=== PATIENT | female | born 1965 | race Caucasian/White ===

== ENCOUNTER 2018-09-15 14:18 | Emergency (ER) | payer BC ==
[2018-09-15] MEDS ORDERED: Sodium Chloride 0.9% 10 ML Syringe FLUSH PRN (14:52)
[2018-09-15] MEDS ORDERED: Lactated Ringers 1,000 ML IV SCH (15:00)
--- NOTE | 2018-09-15 15:46 | EDM.PDOC ---
ED HPI GENERAL MEDICAL PROBLEM - General Chief Complaint: OPHTHALMIC MEDICAL TECHNICIAN Problem Stated Complaint: FREQUENT VAGINAL BLEEDING Time Seen by Provider: 09/15/18 14:28 Source of Information: Reports: Patient History Limitations: Reports: No Limitations - History of Present Illness INITIAL COMMENTS - FREE TEXT/NARRATIVE: The patient presents with vaginal bleeding. The patient says this started July 25. She has been bleeding daily and she did see her doctor. She was put on provera and that did not help so she was put on some control and that made her stop bleeding for about a week and then it started again and she has been bleeding for over a week. She sees ARTI Cadena in [place]. She sent her up for further evaluation and treatment. She said this morning she soaked 6 pads in 4 hours. She is . She had no complications with any deliveries. She was still getting her periods until the end of July when she started bleeding more. She says every 25 days she would get a period and they would last about 7 days with heavy bleeding at times. She does have some cramping with the bleeding. She says motrin is helping the pain. She has no fever, chills, cough, congestion, runny nose, chest pain, shortness of breath, nausea, vomiting and she is not lightheaded. 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 Abdomen Pain Score (Numeric/FACES): 8 - Related Data Allergies Allergy/AdvReac Type Severity Reaction Status Date / Time No Known Allergies Allergy Verified 09/15/18 14:30 Home Meds: Home Meds Cholecalciferol (Vitamin D3) [Vitamin D3] 1 tab PO DAILY 09/15/18 [History] Ferrous Sulfate [Iron] 325 mg PO MOWEFR 09/15/18 [History] Lisinopril/Hydrochlorothiazide [Zestoretic 10-12.5 mg Tablet] 1 tab PO DAILY [History] Loratadine [Claritin] 10 mg PO DAILY 09/15/18 [History] Multivitamin [Multivitamins] 1 cap PO DAILY 09/15/18 [History] Norgestrel-Ethinyl Estradiol [Cryselle-28 Tablet] 1 each PO BID #1 pack [Rx] medroxyPROGESTERone [Provera] 10 mg PO DAILY 09/15/18 [History] Past Medical History HEENT History: Reports: Impaired Vision, Other (See Below) Other HEENT History: wisdom tooth pulled Cardiovascular History: Reports: Hypertension 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 Denies: Nausea, Vomiting : Reports: Other (Pelvic cramping and vaginal bleeding) ED EXAM, RENAL/ - Physical Exam Exam: See Below Exam Limited By: No Limitations General Appearance: Alert, No Apparent Distress Ears: Normal External Exam Nose: Normal Inspection Head: Atraumatic, Normocephalic Neck: Normal Inspection Respiratory/Chest: No Respiratory Distress, Lungs Clear, Normal Breath Sounds Cardiovascular: Regular Rate, Rhythm, No Edema, No Murmur GI/Abdominal: Soft, No Organomegaly, No Mass, Tender (Mild lower abdominal tenderness) Extremities: Normal Inspection Course - Vital Signs Last Recorded V/S: Last Vital Signs Temp 98.1 F 09/15/18 14:24 Pulse 103 H 09/15/18 14:24 Resp 19 09/15/18 14:24 BP 157/68 H 09/15/18 14:24 Pulse Ox 98 09/15/18 14:24 - Orders/Labs/Meds Orders: Active Orders 24 hr Category Date Time Status Pelvic Exam, Set Up [RC] ASDIRECTED Care 09/15/18 14:54 Active Peripheral IV Care [RC] . DIRECTED Care 09/15/18 14:53 Active Lactated Ringers [Ringers, Lactated] 1,000 ml Med 09/15/18 15:00 Active IV ASDIRECTED Sodium Chloride 0.9% [Saline Flush] Med 09/15/18 14:52 Active 10 ml FLUSH ASDIRECTED PRN Peripheral IV Insertion Adult [OM.PC] Stat Oth 09/15/18 14:52 Ordered Medication Orders Lactated Ringer's (Ringers, Lactated) 1,000 mls @ 125 mls/hr IV ASDIRECTED MILLIE Last Admin: 09/15/18 15:45 Dose: 125 mls/hr Sodium Chloride (Saline Flush) 10 ml FLUSH ASDIRECTED PRN PRN Reason: Keep Vein Open Last Admin: 09/15/18 15:46 Dose: 10 ml Labs: Laboratory Tests 09/15/18 09/15/18 09/15/18 Range/Units 15:50 15:50 15:50 WBC 12.88 H (3.98-10.04) K/mm3 RBC 4.01 (3.98-5.22) M/mm3 Hgb 10.4 L (11.2-15.7) gm/L Hct 32.8 L (34.1-44.9) % MCV 81.8 (79.4-94.8) fl MCH 25.9 (25.6-32.2) pg MCHC 31.7 L (32.2-35.5) g/dl RDW Std Deviation 42.7 (36.4-46.3) fL Plt Count 239 (182-369) K/mm3 MPV 10.7 (9.4-12.3) fl Neut % (Auto) 77.2 H (34.0-71.1) % Lymph % (Auto) 16.8 L (19.3-51.7) % [place] % (Auto) 5.5 (4.7-12.5) % Eos % (Auto) 0.2 L (0.7-5.8) Baso % (Auto) 0.1 (0.1-1.2) % Neut # (Auto) 9.95 H (1.56-6.13) K/mm3 Lymph # (Auto) 2.16 (1.18-3.74) K/mm3 [place] # (Auto) 0.71 H (0.24-0.36) K/mm3 Eos # (Auto) 0.03 L (0.04-0.36) K/mm3 Baso # (Auto) 0.01 (0.01-0.08) K/mm3 Sodium 143 (136-145) mEq/L Potassium 3.4 L (3.5-5.1) mEq/L Chloride 105 (98-107) mEq/L Carbon Dioxide 25 (21-32) mEq/L Anion Gap 16.4 H (5-15) BUN 11 (7-18) mg/dL Creatinine 0.8 (0.55-1.02) mg/dL Est Cr Clr Drug Dosing TNP Estimated GFR (MDRD) > 60 (>60) mL/min BUN/Creatinine Ratio 13.8 L (14-18) Glucose 90 (74-106) mg/dL Calcium 9.4 (8.5-10.1) mg/dL Total Bilirubin 0.2 (0.2-1.0) mg/dL AST 13 L (15-37) U/L ALT 20 (14-59) U/L Alkaline Phosphatase 63 (46-116) U/L Total Protein 7.3 (6.4-8.2) g/dl Albumin 3.1 L (3.4-5.0) g/dl Globulin 4.2 gm/dL Albumin/Globulin Ratio 0.7 L (1-2) HCG, Qual Negative (NEGATIVE) Meds: Medications Generic Name Dose Route Start Last Admin Trade Name Freq PRN Reason Stop Dose Admin Lactated Ringer's 1,000 mls @ 125 mls/hr 09/15/18 15:00 09/15/18 15:45 Ringers, Lactated IV 125 mls/hr ASDIRECTED MILLIE Administration Sodium Chloride 10 ml 09/15/18 14:52 09/15/18 15:46 Saline Flush FLUSH 10 ml ASDIRECTED PRN Administration Keep Vein Open - Re-Assessments/Exams Free Text/Narrative Re-Assessment/Exam: 09/15/18 15:48 I ordered an IV LR at 125mL/hr, labs, and pelvic exam. 09/15/18 16:56 Her WBC was elevated at 12.88. Her Hgb was low at 10.4. On August 17 her Hgb was 11.5. 09/15/18 17:10 The US shows endometrial thickness at the upper limits of normal at 1.8cm. Incidental nabothian cysts. Questionable adenomyosis. Small 3.0cm simple cyst within the left ovary which is likely incidental. I called Dr Pascual and he would like to see the patient tomorrow morning at 8:30 and he wanted her on cryselle control BID. Departure - Departure Time of Disposition: 17:15 Disposition: Home, Self-Care 01 Condition: Good Clinical Impression: Menorrhagia Qualifiers: Menorrahagia type: with irregular cycle Qualified Code(s): N92.1 - Excessive and frequent menstruation with irregular cycle - Discharge Information *PRESCRIPTION DRUG MONITORING PROGRAM REVIEWED*: Not Applicable *COPY OF PRESCRIPTION DRUG MONITORING REPORT IN PATIENT GUZMAN: Not Applicable Prescriptions: Norgestrel-Ethinyl Estradiol [Cryselle-28 Tablet] 1 each PO BID #1 pack Referrals: Yazmin Leyva PA [Primary Care Provider] - Bhavik Pascual MD [Physician] - 1 Day Forms: ED Department Discharge Additional Instructions: Take the cryselle control pill in the morning and night. Follow up with Dr Pascual tomorrow morning at 8:30am. Please come a little early to register. Please return if you are worse. - My Orders Last 24 Hours: My Active Orders 09/15/18 14:52 Sodium Chloride 0.9% [Saline Flush] 10 ml FLUSH ASDIRECTED PRN Peripheral IV Insertion Adult [OM.PC] Stat 09/15/18 14:53 Peripheral IV Care [RC] . DIRECTED 09/15/18 14:54 Pelvic Exam, Set Up [RC] ASDIRECTED 09/15/18 15:00 Lactated Ringers [Ringers, Lactated] 1,000 ml IV ASDIRECTED - Assessment/Plan Last 24 Hours: My Active Orders 09/15/18 14:52 Sodium Chloride 0.9% [Saline Flush] 10 ml FLUSH ASDIRECTED PRN Peripheral IV Insertion Adult [OM.PC] Stat 09/15/18 14:53 Peripheral IV Care [RC] . DIRECTED 09/15/18 14:54 Pelvic Exam, Set Up [RC] ASDIRECTED 09/15/18 15:00 Lactated Ringers [Ringers, Lactated] 1,000 ml IV ASDIRECTED
--- NOTE | 2018-09-15 16:34 | US ---
Pelvic ultrasound: Multiple real-time images were obtained transvaginally. Uterus is anteverted. Uterus is generous in size without focal myometrial abnormality. Endometrial thickness is at the upper limits of normal at 1.8 cm. Small 3.0 cm simple cyst noted within the left ovary. Right ovary is unremarkable. Incidental nabothian cysts are seen. Uterus is slightly difficult to penetrate raising the possibility of adenomyosis. No free fluid is seen. Measurements: Uterus: Length 14.4 cm, AP height 8.5 cm, transverse with 12.3 cm Right ovary: 4.3 x 2.3 x 1.7 cm Left ovary: 6.2 x 2.8 x 4.8 cm Impression: 1. Endometrial thickness at the upper limits of normal at 1.8 cm. 2. Incidental nabothian cysts. 3. Questionable adenomyosis. 4. Small 3.0 cm simple cyst within the left ovary which is likely incidental. Diagnostic code #2
== END 2018-09-15 17:52 | disposition home or self-care (01) ==
LOC: JD.ED 14:18
DX: N92.1 Excessive and frequent menstruation with irregular cycle (principal); I10 Essential (primary) hypertension; Z79.899 Other long term (current) drug therapy
CPT/HCPCS: 36415; 76830; 80053; 84703; 85025; 96360; 96361; 99284; J7120; 99283

== ENCOUNTER 2018-09-23 07:04 | Inpatient (IN) | payer BC ==
[~2018-09-23 07:04] MED LIST: Dexamethasone 4 MG/ML 5 ML MDV ONE; Ketorolac 30 MG/ML SDV ONE; Lactated Ringers 1,000 ML IV SCH; Lidocaine 1%/Sod Bicarbonate in NS 8.4% 1 ML Syringe IDERM PRN; Midazolam 1 MG/ML 2 ML SDV ONE; Propofol 200 MG/20 ML SDV ONE; Rocuronium 50 MG/5 ML Vial ONE; Sodium Chloride 0.9% 10 ML Syringe FLUSH PRN; ceFAZolin 1 GM Vial ONE; fentaNYL 100 MCG/2 ML SDV ONE
[2018-09-23] MEDS ORDERED: Scopolamine 1.5 MG Transdermal Patch TRDERM ONE (08:15)
--- NOTE | 2018-09-23 08:29 | PCM.PREANE ---
Preanesthetic Assessment - Anesthesia/Transfusion/Family Hx Anesthesia History: No Prior Anesthesia Family History of Anesthesia Reaction: No Transfusion History: No Prior Transfusion(s) Intubation History: Unknown - Review of Systems General: No Symptoms Pulmonary: No Symptoms (ETOH: rare) Cardiovascular: No Symptoms (History of HTN), Palpitations Gastrointestinal: No Symptoms Neurological: No Symptoms (History of getting car sick/Vertigo noted one time/ scopalamine patch placed in preop. area.) Other: Reports: Sinus Problem (Seasonal allergies), Anxiety - Physical Assessment NPO Status Date: 09/22/18 NPO Status Time: 20:00 Pulse: 79 O2 Sat by Pulse Oximetry: 98 Respiratory Rate: 16 Blood Pressure: 141/68 Temperature: 36.7 C Vital Signs: Last Vital Signs Temp 36.7 C 09/23/18 07:25 Pulse 79 09/23/18 07:25 Resp 16 09/23/18 07:25 BP 141/68 H 09/23/18 07:25 Pulse Ox 98 09/23/18 07:25 Height: 1.75 m Weight: 110.677 kg ASA Class: 2 Mental Status: Alert & Oriented x3 Airway Class: Mallampati = 3 Dentition: Reports: Normal Dentition, [place](s), [place] Thyro-Mental Finger Breadths: 3 Mouth Opening Finger Breadths: 3 ROM/Head Extension: Full Lungs: Clear to Auscultation, Normal Respiratory Effort Cardiovascular: Regular Rate, Regular Rhythm, No Murmurs - Lab Values: Laboratory Last Values Urine HCG, Qual Negative (NEGATIVE) 09/23/18 07:28 - Imaging/EKG Impressions: EKG: SR rate=75, minimal ST depression/lateral leads. (5K run in October 2017, noted with patient reporting no symptoms or complaints at that time and no changes noted with exercise tolerance since that time.) - Allergies Allergies/Adverse Reactions: Allergies Allergy/AdvReac Type Severity Reaction Status Date / Time No Known Allergies Allergy Verified 09/23/18 08:16 - Anesthesia Plan Pre-Op Medication Ordered: None - Acknowledgements Anesthesia Type Planned: General Anesthesia Pt an Appropriate Candidate for the Planned Anesthesia: Yes Alternatives and Risks of Anesthesia Discussed w Pt/Guardian: Yes Pt/Guardian Understands and Agrees with Anesthesia Plan: Yes PreAnesthesia Questionnaire HEENT History: Reports: Impaired Vision, Other (See Below) Other HEENT History: wisdom tooth pulled Cardiovascular History: Reports: Hypertension Respiratory History: Reports: None Gastrointestinal History: Reports: None Genitourinary History: Reports: None 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: Musculoskeletal History: Reports: None Neurological History: Reports: None Psychiatric History: Reports: None Endocrine/Metabolic History: Reports: None Hematologic History: Reports: None Immunologic History: Reports: None Oncologic (Cancer) History: Reports: None Dermatologic History: Reports: None - Infectious Disease History Infectious Disease History: Reports: Chicken Pox - Past Surgical History Head Surgeries/Procedures: Reports: None Cardiovascular Surgical History: Reports: None Respiratory Surgical History: Reports: None GI Surgical History: Reports: None Female Surgical History: Reports: None Male Surgical History: Reports: None Endocrine Surgical History: Reports: None Neurological Surgical History: Reports: None Musculoskeletal Surgical History: Reports: None Oncologic Surgical History: Reports: None Dermatological Surgical History: Reports: None - SUBSTANCE USE Smoking Status *Q: Never Smoker Recreational Drug Use History: No - HOME MEDS Home Medications: Home Meds Cholecalciferol (Vitamin D3) [Vitamin D3] 1 tab PO DAILY 09/15/18 [History] Ferrous Sulfate [Iron] 325 mg PO MOWEFR 09/15/18 [History] Lisinopril/Hydrochlorothiazide [Zestoretic 10-12.5 mg Tablet] 1 tab PO DAILY [History] Loratadine [Claritin] 10 mg PO DAILY 09/15/18 [History] Multivitamin [Multivitamins] 1 cap PO DAILY 09/15/18 [History] Norgestrel-Ethinyl Estradiol [Cryselle-28 Tablet] 1 each PO BID #1 pack [Rx] - CURRENT (IN HOUSE) MEDS Current Meds: Current Medications Lactated Ringer's (Ringers, Lactated) 1,000 mls @ 125 mls/hr IV ASDIRECTED MILLIE Stop: 09/23/18 23:00 Last Admin: 09/23/18 07:55 Dose: 125 mls/hr Lidocaine/Sodium Bicarbonate (Buffered Lidocaine 1% In Ns 8.4%) 0.25 ml IDERM ONETIME PRN PRN Reason: Prior to IV Start Stop: 09/23/18 18:00 Last Admin: 09/23/18 07:55 Dose: 0.25 ml Scopolamine (Transderm-Scop) 1.5 mg TRDERM ONETIME ONE Stop: 09/23/18 08:16 Sodium Chloride (Saline Flush) 10 ml FLUSH ASDIRECTED PRN PRN Reason: Keep Vein Open Stop: 09/23/18 18:00 Discontinued Medications Cefazolin Sodium (Ancef) Confirm Administered Dose 1 gm .ROUTE .STK-MED ONE Stop: 09/23/18 06:54 Cefazolin Sodium (Ancef) Confirm Administered Dose 1 gm .ROUTE .STK-MED ONE Stop: 09/23/18 06:55 Dexamethasone (Dexamethasone) Confirm Administered Dose 20 mg .ROUTE .STK-MED ONE Stop: 09/23/18 06:49 Fentanyl (Sublimaze) Confirm Administered Dose 100 mcg .ROUTE .STK-MED ONE Stop: 09/23/18 06:47 Ketorolac Tromethamine (Toradol) Confirm Administered Dose 30 mg .ROUTE .STK- MED ONE Stop: 09/23/18 06:48 Midazolam HCl (Versed 1 Mg/Ml) Confirm Administered Dose 2 mg .ROUTE .STK-MED ONE Stop: 09/23/18 06:46 Propofol (Diprivan 20 Ml) Confirm Administered Dose 200 mg .ROUTE .STK-MED ONE Stop: 09/23/18 06:46 Rocuronium Ault (Zemuron) Confirm Administered Dose 50 mg .ROUTE .STK-MED ONE Stop: 09/23/18 06:47
[2018-09-23] MEDS ORDERED: Bupivacaine 0.5% 30 ML SDV ONE (08:43)
[2018-09-23] MEDS ORDERED: HYDROmorphone 0.5 MG/0.5 ML Syringe ONE ×4 (09:30→10:58)
[2018-09-23] MEDS ORDERED: fentaNYL 100 MCG/2 ML SDV ONE (09:31)
[2018-09-23] MEDS ORDERED: Neostigmine Methylsulfate 1 MG/ML 5 ML Syringe ONE (09:44)
[2018-09-23] MEDS ORDERED: Ondansetron 4 MG/2 ML SDV ONE (09:52)
[2018-09-23] MEDS: Sodium Chloride 0.9% 50 ML SDV ONE ×2 (10:12→10:25)
[2018-09-23] MEDS: Lidocaine 1% with EPINEPHrine 1:100,000 20 ML MDV ONE ×2 (10:12→10:25)
[2018-09-23] MEDS ORDERED: Propofol 200 MG/20 ML SDV ONE (10:47)
[2018-09-23] MEDS ORDERED: Phenylephrine 1% 10 MG/ML SDV ONE (10:52)
[2018-09-23] MEDS ORDERED: Hetastarch in NS 500 ML ONE (11:12)
[2018-09-23] MEDS ORDERED: HYDROmorphone 0.5 MG/0.5 ML Syringe IVPUSH PRN ×2 (12:12→13:26)
--- NOTE | 2018-09-23 12:15 | PCM.POSTAN ---
POST ANESTHESIA ASSESSMENT - MENTAL STATUS Mental Status: Alert, Oriented - VITAL SIGNS Pulse Rate: 93 SaO2: 100 Resp Rate: 16 Blood Pressure: 134/66 Temperature: 7.7 C - RESPIRATORY Respiratory Status: Respiratory Rate WNL, Airway Patent, O2 Saturation Stable, Supplemental Oxygen - CARDIOVASCULAR CV Status: Pulse Rate WNL, Blood Pressure Stable - GASTROINTESTINAL GI Status: No Symptoms - PAIN Pain Score: 0 - POST OP HYDRATION Hydration Status: Adequate & Stable
--- NOTE | 2018-09-23 12:24 | PCM.OPNOTE ---
- General Post-Op/Procedure Note Date of Surgery/Procedure: 09/23/18 Operative Procedure(s): Laparoscopy, total abdominal hysterectomy with bilateral salpingo-oophorectomy. Findings: Patient is noted to have a uterus measuring approximate 14 weeks size when 642 g , very flaccid consistent with adenomyosis previously diagnosed on ultrasound. Ovaries functional in nature. Fallopian tubes and ovary scarred to the posterior broad ligament with moderately dense adhesions. Appendix flaccid and normal in appearance. Abdomen otherwise within normal in size including anterior cul-de-sac. Posterior cul-de-sac and uterine adhesions most probably secondary to endometriosis. Pre Op Diagnosis: 1. Menorrhagia. 2. Uterine enlargement. 3. Adenomyosis. 4. Acute blood loss anemia Post-Op Diagnosis: Same with addition of pelvic adhesions and endometriosis. Anesthesia Technique: General ET Tube Other Anesthesia Type: Marcaine 5%approximate 20 mL total, lidocaine 1/4% 20 mL total Primary Surgeon: Bhavik Pascual Secondary Surgeon: Chad Chaudhary Anesthesia Provider: Robbin Bellamy Tunnel Elastic Operator Zigzag: Bob Gonzalez Reason Tunnel Elastic Operator Zigzag Was Necessary: Retraction, assistance, patient safety, quality of care Pathology: Uterus, tubes and ovaries sent in one container. Fluid Replacement, Intraop: 2,000 Output, Urine Amount: 200 EBL in mLs: 950 Drain/Tube Comments:: Indwelling bladder catheter Complications: None Condition: Good Free Text/Narrative:: Surgery duration: 2 hours and 5 minutes Procedure: After patient was appropriately consented and preoperatively the patient was taken to the operating room. She received 2 g of Ancef IV for infection prophylaxis and had sequential compression stockings in place for DVT prophylaxis. After adequate general endotracheal anesthesia was introduced, the patient was placed in the dorsal lithotomy position, prepped and draped in usual fashion. An indwelling bladder catheter was placed and uterine manipulator was also placed. Laparoscopic portion of procedure was then performed and an infraumbilical and eventually 3 other ports, 2 lateral and once port were developed. Each port site was infiltrated with Marcaine 0.5% approximately 3-5 mL. Verres needle was placed in the infraumbilical incision and pneumoperitoneum was established using 3 napkins liters of CO2. Laparoscopic was then placed the other 3 ports were placed under direct visualization with the scope. Patient's uterus found to be as described above. Is very large approaching 1415 weeks size. It is very flaccid and did not respond to the uterine manipulator well. Posterior cul-de-sac relatively free with the exception of both ovaries and fallopian tubes were moderately adhered to the posterior broad ligament and posterior cul-de-sac. Both ovaries appeared be functional. Both fallopian tubes appeared to be functional. The appendix eventually was visualized and found to be normal. Significant technical difficulty the fallopian tubes were freed up and the intradural pelvic ligament was then crossclamped using the Enseal vessel closure device. This was carried down to the area of the lower broad ligament. On the left side is felt that the uterosacral ligament and the uterine vasculature wa developed. Right side was less well developed. At this time decision is made to proceed to the vaginal portion of the procedure. Patient was repositioned into the dorsal lithotomy position with legs up. A weighted speculum was placed in the vagina and the cervix was infiltrated with lidocaine quarter percent with [id number] mL. The cervical epithelium was incised with the scalpel in full circumference. Attempt was made to enter the posterior cul-de-sac and the anterior cul-de-sac. This was found be very difficult and at this time decision was made to proceed with abdominal route and her provide the greatest patient safety. Patient was repositioned to a supine position with slight Trendelenburg. She then underwent a Pfannenstiel skin incision with the area initially been infiltrated with Marcaine 0.5%10 more cc. The incision was carried down through skin subcutaneous and fascial layers using sharp dissection. Cautery was used to control bleeders. Fascia was undermined superiorly and inferiorly to allow for adequate operating room. The recti muscles midline and preperitoneal fat was bluntly dissected. Patient had a pneumoperitoneum which made it easier to enter the abdominal peritoneum. This was entered and extended in a bilateral fashion bluntly. The large Rolando retractor was then placed and uterus was visualized. Uterus is brought forth through the incision. Then in a serial fashion the remaining portion of the broad ligament, cardinal ligament on each side was developed in a routine fashion with each of these pedicles being suture ligated with a Rashmi stitch of #1 Vicryl. The vaginal cuff was entered without problems and the total uterine specimen was removed. The vaginal cuff was closed with a running suture of #1 Vicryl. A small piece of the end of the fallopian tube which had been adherent to the right pelvic sidewall was removed using the Enseal vessel closure system. This was At this 2 small bleeders at the end of the cuff were free-tie ligated. This controlled the bleeding and hemostasis confirmed. The pelvis was irrigated. It was found to be hemostatically intact. Patient had had 2 laps placed and tagged to retract the bowel. These were removed and the patient's abdomen was closed. Fascia was closed in a running fashion with #1 PDS. Subcutaneous area was closed with 3 stitches of 0 Vicryl in an interrupted fashion to decrease likelihood of bleeding, hematoma or seroma. The skin was closed with running subcutaneous stitch of 3-0 Monocryl. This further approximated with Prineo mesh. The patient was returned to supine position. Indwelling bladder catheter was left in place. Patient was awakened from general endotracheal anesthesia and left the operating room in good condition.
[2018-09-23] MEDS ORDERED: Acetaminophen/oxyCODONE 325-5 MG Tab PO PRN (13:26)
[2018-09-23] MEDS ORDERED: Ondansetron 4 MG/2 ML SDV IVPUSH PRN (13:26)
[2018-09-23] MEDS: Ibuprofen 600 MG Tab PO PRN ×3 (13:44→23:29)
[2018-09-23] MEDS ORDERED: Sodium Chloride 0.9% 1,000 ML IV ONE (15:20)
[2018-09-23] MEDS: Lactated Ringers 1,000 ML IV SCH ×2 (16:46→23:23)
[2018-09-23] MEDS: Docusate Sodium 100 MG Cap PO SCH (20:49)
[2018-09-24] MEDS: Ibuprofen 600 MG Tab PO PRN ×2 (05:59→12:14)
[2018-09-24] MEDS: Lactated Ringers 1,000 ML IV SCH (05:59)
[2018-09-24] MEDS: Docusate Sodium 100 MG Cap PO SCH (08:37)
[2018-09-24] MEDS ORDERED: Hydrochlorothiazide 12.5 MG Cap PO SCH (09:00)
[2018-09-24] MEDS ORDERED: Lisinopril 10 MG Tab PO SCH (09:00)
--- NOTE | 2018-09-24 09:57 | PCM48HPAN ---
Post Anesthesia Note - EVALUATION WITHIN 48HRS OF ANESTHETIC Vital Signs in Normal Range: Yes Patient Participated in Evaluation: Yes Respiratory Function Stable: Yes Airway Patent: Yes Cardiovascular Function Stable: Yes Hydration Status Stable: Yes Pain Control Satisfactory: Yes Nausea and Vomiting Control Satisfactory: Yes Mental Status Recovered: Yes Pulse Rate: 78 Resp Rate: 16 Temperature: 37.4 C Blood Pressure: 130/55 - COMMENTS/OBSERVATIONS Free Text/Narrative:: no anesthesia complications noted
--- NOTE | 2018-09-24 10:34 | PCM.SN ---
- Free Text/Narrative Note: Postoperative day one: Status post laparoscopy, total abdominal hysterectomy with bilateral salpingo-oophorectomy. Diagnosis: Menorrhagia with resultant acute and chronic blood loss anemia Uterine [id number] g uterus Adenomyosis by ultrasound Pelvic endometriosis with resultant posterior cul-de-sac, ovarian and fallopian tube adhesions Patient today is doing well. She is controlling her pain with ibuprofen only. She is passing gas. Urine output is been good. She is tolerating fluids well and has had a full regular diet. She is ambulating well. Feels somewhat tired but does not feel faint or dizzy or like she is going to pass out. Appears that she is tolerating her anemia well. She is desiring discharge home. In general patient is well-developed, well-nourished pleasant female who is alert and oriented 3. Lungs are clear with good breath sounds in all lung lund. Cardiovascular exam shows regular rate and rhythm. Pulses been in normal range as has blood pressures since time of surgery. Abdomen shows an intact, dry incision. Prineo Mesh is in place and intact. Suture tied over the course of the mesh had been cut at the skin surface. Legs are nontender. She has trace edema bilaterally. Laboratory testing shows hemoglobin 7.5 and hematocrit 23.8. White count is 11.58. Platelets are 200,000. Creatinine 0.8. This is essentially unchanged from preoperative evaluation. Metabolic profile other than decreasing protein is essentially normal. Assessment: 1. Postoperative day one with good progress. 2. Anemia secondary to acute blood loss at time of surgery and acute and chronic blood loss from the patient's menorrhagia. Appears to be manageable at this time patient seems to be doing well clinically. Do not feel that she needs transfusion at this time. In detail with patient. Plan: 1. Discontinue Valles catheter, weight with discharge and patient has voided. 2. Continue ibuprofen for pain control 3. Continue increase in ambulation. Regular diet. 4. Discharge home later today if patient is doing well.
--- NOTE | 2018-09-24 10:37 | PCM.DCSUM1 ---
Discharge Summary - Hospital Course Free Text/Narrative:: Postoperative day one: Status post laparoscopy, total abdominal hysterectomy with bilateral salpingo-oophorectomy. Diagnosis: Menorrhagia with resultant acute and chronic blood loss anemia Uterine [id number] g uterus Adenomyosis by ultrasound Pelvic endometriosis with resultant posterior cul-de-sac, ovarian and fallopian tube adhesions Patient today is doing well. She is controlling her pain with ibuprofen only. She is passing gas. Urine output is been good. She is tolerating fluids well and has had a full regular diet. She is ambulating well. Feels somewhat tired but does not feel faint or dizzy or like she is going to pass out. Appears that she is tolerating her anemia well. She is desiring discharge home. In general patient is well-developed, well-nourished pleasant female who is alert and oriented 3. Lungs are clear with good breath sounds in all lung lund. Cardiovascular exam shows regular rate and rhythm. Pulses been in normal range as has blood pressures since time of surgery. Abdomen shows an intact, dry incision. Prineo Mesh is in place and intact. Suture tied over the course of the mesh had been cut at the skin surface. Legs are nontender. She has trace edema bilaterally. Laboratory testing shows hemoglobin 7.5 and hematocrit 23.8. White count is 11.58. Platelets are 200,000. Creatinine 0.8. This is essentially unchanged from preoperative evaluation. Metabolic profile other than decreasing protein is essentially normal. Plan for patient to be discharged home later today continued improvement noted in her clinical course. Diagnosis: Stroke: No - Discharge Data Discharge Date: 09/24/18 Discharge Disposition: Home, Self-Care 01 Condition: Good - Patient Summary/Data Operative Procedure(s) Performed: Laparoscopy, total abdominal hysterectomy with bilateral salpingo-oophorectomy. - Patient Instructions Diet: Regular Diet as Tolerated (High fiber diet with stool softeners as necessary due to increasing iron intake.) Activity: As Tolerated (No intercourse or tampons until seen back. No lifting greater than 15 pounds.) Driving: Do Not Drive Showering/Bathing: May Shower Wound/Incision Care: Keep Operative Site/Wound Site Clean and Dry Notify Provider of: Fever, Increased Pain, Swelling and Redness, Drainage, Nausea and/or Vomiting - Discharge Plan Home Medications: Home Meds Cholecalciferol (Vitamin D3) [Vitamin D3] 1 tab PO DAILY 09/15/18 [History] Ferrous Sulfate [Iron] 325 mg PO MOWEFR 09/15/18 [History] Lisinopril/Hydrochlorothiazide [Zestoretic 10-12.5 mg Tablet] 1 tab PO DAILY [History] Loratadine [Claritin] 10 mg PO DAILY 09/15/18 [History] Multivitamin [Multivitamins] 1 cap PO DAILY 09/15/18 [History] Acetaminophen/oxyCODONE [Percocet 325-5 MG] 2 tab PO Q4H PRN #20 tablet [Rx] Docusate Sodium [Colace] 100 mg PO BID cap 09/24/18 [Rx] Ibuprofen [Motrin] 600 mg PO Q4H PRN tablet 09/24/18 [Rx] Referrals: Bhavik Pascual MD [Physician] - ([facility] - Discharge Summary/Plan Comment DC Time >30 min.: Yes - Patient Data Vitals - Most Recent: Last Vital Signs Temp 37.4 C 09/24/18 09:57 Pulse 78 09/24/18 09:57 Resp 16 09/24/18 09:57 BP 130/55 L 09/24/18 09:57 Pulse Ox 99 09/24/18 07:44 Weight - Most Recent: 114.85 kg I&O - Last 24 hours: Intake & Output 09/23/18 09/24/18 09/24/18 22:59 06:59 14:59 Intake Total 3420 2560 120 Output Total 150 Balance 3270 2560 120 Lab Results - Last 24 hrs: Laboratory Results - last 24 hr 09/23/18 09/23/18 09/24/18 Range/Units 07:55 14:25 05:35 WBC 20.50 H 11.58 H (3.98-10.04) K/mm3 RBC 3.57 L 2.85 L (3.98-5.22) M/mm3 Hgb 9.5 L 7.5 L D (11.2-15.7) gm/L Hct 29.5 L 23.8 L (34.1-44.9) % MCV 82.6 83.5 (79.4-94.8) fl MCH 26.6 26.3 (25.6-32.2) pg MCHC 32.2 31.5 L (32.2-35.5) g/dl RDW Std Deviation 41.3 43.0 (36.4-46.3) fL Plt Count 235 200 (182-369) K/mm3 MPV 10.4 11.0 (9.4-12.3) fl Neut % (Auto) 78.1 H (34.0-71.1) % Lymph % (Auto) 14.9 L (19.3-51.7) % [place] % (Auto) 6.8 (4.7-12.5) % Eos % (Auto) 0 L (0.7-5.8) Baso % (Auto) 0.0 L (0.1-1.2) % Neut # (Auto) 9.04 H (1.56-6.13) K/mm3 Lymph # (Auto) 1.73 (1.18-3.74) K/mm3 [place] # (Auto) 0.79 H (0.24-0.36) K/mm3 Eos # (Auto) 0.00 L (0.04-0.36) K/mm3 Baso # (Auto) 0.00 L (0.01-0.08) K/mm3 Manual Slide Review Abnormal smear Sodium (136-145) mEq/L Potassium (3.5-5.1) mEq/L Chloride (98-107) mEq/L Carbon Dioxide (21-32) mEq/L Anion Gap (5-15) BUN (7-18) mg/dL Creatinine (0.55-1.02) mg/dL Est Cr Clr Drug Dosing mL/min Estimated GFR (MDRD) (>60) mL/min BUN/Creatinine Ratio (14-18) Glucose (74-106) mg/dL Calcium (8.5-10.1) mg/dL Total Bilirubin (0.2-1.0) mg/dL AST (15-37) U/L ALT (14-59) U/L Alkaline Phosphatase (46-116) U/L Total Protein (6.4-8.2) g/dl Albumin (3.4-5.0) g/dl Globulin gm/dL Albumin/Globulin Ratio (1-2) Blood Type B POSITIVE Gel Antibody Screen Negative Crossmatch See Detail 09/24/18 Range/Units 05:35 WBC (3.98-10.04) K/mm3 RBC (3.98-5.22) M/mm3 Hgb (11.2-15.7) gm/L Hct (34.1-44.9) % MCV (79.4-94.8) fl MCH (25.6-32.2) pg MCHC (32.2-35.5) g/dl RDW Std Deviation (36.4-46.3) fL Plt Count (182-369) K/mm3 MPV (9.4-12.3) fl Neut % (Auto) (34.0-71.1) % Lymph % (Auto) (19.3-51.7) % [place] % (Auto) (4.7-12.5) % Eos % (Auto) (0.7-5.8) Baso % (Auto) (0.1-1.2) % Neut # (Auto) (1.56-6.13) K/mm3 Lymph # (Auto) (1.18-3.74) K/mm3 [place] # (Auto) (0.24-0.36) K/mm3 Eos # (Auto) (0.04-0.36) K/mm3 Baso # (Auto) (0.01-0.08) K/mm3 Manual Slide Review Sodium 140 (136-145) mEq/L Potassium 3.7 (3.5-5.1) mEq/L Chloride 107 (98-107) mEq/L Carbon Dioxide 24 (21-32) mEq/L Anion Gap 12.7 (5-15) BUN 7 (7-18) mg/dL Creatinine 0.8 (0.55-1.02) mg/dL Est Cr Clr Drug Dosing 86.94 mL/min Estimated GFR (MDRD) > 60 (>60) mL/min BUN/Creatinine Ratio 8.8 L (14-18) Glucose 135 H (74-106) mg/dL Calcium 7.8 L D (8.5-10.1) mg/dL Total Bilirubin 0.2 (0.2-1.0) mg/dL AST 10 L (15-37) U/L ALT 12 L (14-59) U/L Alkaline Phosphatase 42 L (46-116) U/L Total Protein 5.1 L (6.4-8.2) g/dl Albumin 2.1 L (3.4-5.0) g/dl Globulin 3.0 gm/dL Albumin/Globulin Ratio 0.7 L (1-2) Blood Type Gel Antibody Screen Crossmatch Med Orders - Current: Current Medications Docusate Sodium (Colace) 100 mg PO BID [facility] Last Admin: 09/24/18 08:37 Dose: 100 mg Hydrochlorothiazide (Hydrochlorothiazide) 12.5 mg PO DAILY [facility] Last Admin: 09/24/18 08:37 Dose: 12.5 mg Hydromorphone HCl (Dilaudid) 0.2 mg IVPUSH Q2H PRN PRN Reason: Pain (severe 7-10) Lactated Ringer's (Ringers, Lactated) 1,000 mls @ 150 mls/hr IV ASDIRECTED [facility] Last Admin: 09/24/18 05:59 Dose: 150 mls/hr Ibuprofen (Motrin) 600 mg PO Q4H PRN PRN Reason: Pain (mild 1-3) Last Admin: 09/24/18 05:59 Dose: 600 mg Ondansetron HCl (Zofran) 4 mg IVPUSH Q4H PRN PRN Reason: Nausea/Vomiting Oxycodone/Acetaminophen (Percocet 325-5 Mg) 2 tab PO Q4H PRN PRN Reason: Pain (moderate 4-6) Discontinued Medications Bupivacaine HCl (Marcaine 0.5%) Confirm Administered Dose 30 ml .ROUTE .STK-MED ONE Stop: 09/23/18 08:44 Last Admin: 09/23/18 09:45 Dose: 13 ml Cefazolin Sodium (Ancef) Confirm Administered Dose 1 gm .ROUTE .STK-MED ONE Stop: 09/23/18 06:54 Cefazolin Sodium (Ancef) Confirm Administered Dose 1 gm .ROUTE .STK-MED ONE Stop: 09/23/18 06:55 Dexamethasone (Dexamethasone) Confirm Administered Dose 20 mg .ROUTE .STK-MED ONE Stop: 09/23/18 06:49 Fentanyl (Sublimaze) Confirm Administered Dose 100 mcg .ROUTE .STK-MED ONE Stop: 09/23/18 06:47 Fentanyl (Sublimaze) Confirm Administered Dose 100 mcg .ROUTE .STK-MED ONE Stop: 09/23/18 09:32 Glycopyrrolate () Confirm Administered Dose 1 mg .ROUTE .STK-MED ONE Stop: 09/23/18 09:45 Hydromorphone HCl (Dilaudid) Confirm Administered Dose 0.5 mg .ROUTE .STK-MED ONE Stop: 09/23/18 09:31 Hydromorphone HCl (Dilaudid) Confirm Administered Dose 0.5 mg .ROUTE .STK-MED ONE Stop: 09/23/18 09:58 Hydromorphone HCl (Dilaudid) Confirm Administered Dose 0.5 mg .ROUTE .STK-MED ONE Stop: 09/23/18 10:59 Hydromorphone HCl (Dilaudid) Confirm Administered Dose 0.5 mg .ROUTE .STK-MED ONE Stop: 09/23/18 10:59 Hydromorphone HCl (Dilaudid) 0.5 mg IVPUSH Q15M PRN PRN Reason: Pain (severe 7-10) Stop: 09/23/18 18:00 Lactated Ringer's (Ringers, Lactated) 1,000 mls @ 125 mls/hr IV ASDIRECTED [facility] Stop: 09/23/18 23:00 Last Admin: 09/23/18 07:55 Dose: 125 mls/hr Hetastarch/Sodium Chloride (Hetastarch 6% In Normal Saline) Confirm Administered Dose 500 mls @ as directed .ROUTE .STK-MED ONE Stop: 09/23/18 11:13 Sodium Chloride (Normal Saline) 1,000 mls @ 999 mls/hr IV ONETIME ONE Stop: 09/23/18 16:20 Last Admin: 09/23/18 15:32 Dose: 999 mls/hr Ketorolac Tromethamine (Toradol) Confirm Administered Dose 30 mg .ROUTE .STK- MED ONE Stop: 09/23/18 06:48 Lidocaine/Epinephrine (Xylocaine 1% With Epinephrine 1:100,000) Confirm Administered Dose 20 ml .ROUTE .STK-MED ONE Stop: 09/23/18 08:43 Last Admin: 09/23/18 10:25 Dose: 5 ml Lidocaine/Sodium Bicarbonate (Buffered Lidocaine 1% In Ns 8.4%) 0.25 ml IDERM ONETIME PRN PRN Reason: Prior to IV Start Stop: 09/23/18 18:00 Last Admin: 09/23/18 07:55 Dose: 0.25 ml Lisinopril (Prinivil) 10 mg PO DAILY [facility] Midazolam HCl (Versed 1 Mg/Ml) Confirm Administered Dose 2 mg .ROUTE .STK-MED ONE Stop: 09/23/18 06:46 Neostigmine Methylsulfate (Neostigmine) Confirm Administered Dose 5 mg .ROUTE .STK-MED ONE Stop: 09/23/18 09:45 Ondansetron HCl (Zofran) Confirm Administered Dose 4 mg .ROUTE .STK-MED ONE Stop: 09/23/18 09:53 Phenylephrine HCl (Sd-Synephrine) Confirm Administered Dose 10 mg .ROUTE .STK- MED ONE Stop: 09/23/18 10:53 Propofol (Diprivan 20 Ml) Confirm Administered Dose 200 mg .ROUTE .STK-MED ONE Stop: 09/23/18 06:46 Propofol (Diprivan 20 Ml) Confirm Administered Dose 200 mg .ROUTE .STK-MED ONE Stop: 09/23/18 10:48 Rocuronium [place] (Zemuron) Confirm Administered Dose 50 mg .ROUTE .STK-MED ONE Stop: 09/23/18 06:47 Scopolamine (Transderm-Scop) 1.5 mg TRDERM ONETIME ONE Stop: 09/23/18 08:16 Last Admin: 09/23/18 08:23 Dose: 1.5 mg Sodium Chloride (Saline Flush) 10 ml FLUSH ASDIRECTED PRN PRN Reason: Keep Vein Open Stop: 09/23/18 18:00 Sodium Chloride (Normal Saline) Confirm Administered Dose 50 ml .ROUTE .STK-MED ONE Stop: 09/23/18 08:44 Last Admin: 09/23/18 10:25 Dose: 15 ml
== END 2018-09-24 13:14 | disposition home or self-care (01) | DRG 513 ==
LOC: JD.SDS 07:04 → JD.MS 12:01
PROVIDERS: ADMIT Obstetrics & Gynecology; ATTEND Obstetrics & Gynecology
PROC: 0UJD4ZZ Inspection of Uterus and Cervix, Percutaneous Endoscopic Approach (ICD-10-PCS; principal; 2018-09-23)
PROC: 0UT20ZZ Resection of Bilateral Ovaries, Open Approach (ICD-10-PCS; principal; 2018-09-23)
PROC: 0UT70ZZ Resection of Bilateral Fallopian Tubes, Open Approach (ICD-10-PCS; principal; 2018-09-23)
PROC: 0UT90ZZ Resection of Uterus, Open Approach (ICD-10-PCS; principal; 2018-09-23)
DX: N92.0 Excessive and frequent menstruation with regular cycle (principal); D62 Acute posthemorrhagic anemia; N80.0 Endometriosis of uterus; N80.3 Endometriosis of pelvic peritoneum; I10 Essential (primary) hypertension; F41.9 Anxiety disorder, unspecified; H54.7 Unspecified visual loss; Z79.899 Other long term (current) drug therapy
CPT/HCPCS: 00840; 36415; 36430; 80053; 81025; 85025; 85027; 86850; 86900; 86901; 86922; 93005; A9270-GY; J0690; J1100; J1170; J1885; J2250; J2370; J2405; J2704; J2710; J3010; J3490; J7040; J7120; P9016